=== PATIENT | female | born 1950 | race Caucasian/White ===

== ENCOUNTER 2019-06-14 19:23 | Emergency (ER) | payer MEDICARE ==
--- NOTE | 2019-06-14 19:38 | UC ---
Skin Complaint HPI - HPI Summary HPI Summary: Started w/ lower back and thigh pain then noticed a rash 2 days ago. she feels like her rash wraps around her L leg. she has noticed blisters. - History of Current Complaint Chief Complaint: UCSkin Time Seen by Provider: 06/14/19 19:31 Stated Complaint: RASH Hx Obtained From: Patient Aggravating Factor(s): Touch Alleviating Factor(s): Nothing - Allergy/Home Medications Allergies/Adverse Reactions: Allergies Allergy/AdvReac Type Severity Reaction Status Date / Time Sulfa (Sulfonamide Allergy Intermediate Hives Verified 06/14/19 19:40 Antibiotics) PMH/Surg Hx/FS Hx/Imm Hx Previously Healthy: Yes - Surgical History Surgical History: Yes Surgery Procedure, Year, and Place: tonsillectomy. wisdom teeth - Family History Known Family History: Positive: Hypertension - Social History Alcohol Use: Occasionally Substance Use Type: None Smoking Status (MU): Never Smoked Tobacco Review of Systems All Other Systems Reviewed And Are Negative: Yes Constitutional: Negative: Fever, Chills, Fatigue Skin: Positive: Rash - painful to touch Neurological: Negative: Paresthesia, Numbness Physical Exam Triage Information Reviewed: Yes Appearance: Well-Appearing Vital Signs Reviewed: Yes Skin: Positive: Rashes - vesicular/erythematous around L4 dermatome wrapping around L leg. Course/Dx - Course Course Of Treatment: Typical shingles rash on immunocompetent woman. Approx L4 dermatome and will rx acyclovir. good vitals. - Differential Diagnoses - Skin Complaint Differential Diagnoses: Drug Rash, Scabies, Varicella Zoster, Other - Diagnoses Provider Diagnosis: Shingles Discharge ED - Sign-Out/Discharge Documenting (check all that apply): Patient Departure All imaging exams completed and their final reports reviewed: No Studies - Discharge Plan Condition: Good Disposition: HOME Prescriptions: Acyclovir [Zovirax 800 MG] 800 mg PO Q4HR 7 Days #35 tab Patient Education Materials: Shingles (ED) Referrals: Kamila Paulino MD [Primary Care Provider] - Additional Instructions: if pain is worsening please see your primary care provider. - Billing Disposition and Condition Condition: GOOD Disposition: Home - Attestation Statements Provider Attestation: Per institutional requirements, I have reviewed the chart, however, I was not consulted specifically or made aware of this patient by the midlevel provider. I did not personally evaluate, interact with, or disposition this patient. EK
[2019-06-14 19:40] VITALS: BP 142/92
[2019-06-14] MEDS ORDERED: Acyclovir* 200 MG CAP PO ONE (19:48)
[2019-06-14] MEDS ORDERED: Acyclovir* 400 MG TAB PO SCH (22:00)
== END 2019-06-14 20:04 | disposition home or self-care (01) ==
LOC: UCCORT 19:23
DX: B02.9 Zoster without complications (principal); Z88.2 Allergy status to sulfonamides
CPT/HCPCS: 99202; A9270-GY; G0463